=== PATIENT | female | born 1970 | race Caucasian/White ===

== ENCOUNTER 2017-09-01 18:14 | Emergency (ER) | payer MEDICAID ==
[~2017-09-01] VITALS: Ht 167.6 cm; Wt 76.2 kg
[2017-09-01 18:26] VITALS: Ht 167.6 cm; Wt 76.2 kg
[2017-09-01 20:25] LABS: BASOPHIL % 0.5 % (0-2); PLATELET COUNT 236 x10^3mcL (130-400); RED CELL DISTRIBUTION WIDTH 13.8 % (11.5-14.5)
[2017-09-01 20:30] LABS: CALCIUM 9.2 mg/dL (8.5-10.1); CARBON DIOXIDE 31.6 mmol/L (21-32); CHLORIDE SERUM 101 mmol/L (98-107); CREATININE SERUM 0.6 mg/dL (0.6-1.0); GFR1 > 60 mL/min; GLUCOSE SERUM 95 mg/dL (74-106); POTASSIUM SERUM 4.3 mmol/L (3.5-5.1); SODIUM SERUM 140 mmol/L (136-145)
[2017-09-01 20:36] LABS: ALBUMIN 4.2 g/dL (3.4-5.0); ALKALINE PHOSPHATASE 96 U/L (46-116); ALT/SGPT 47 U/L (14-59); AST/SGOT 22 U/L (15-37); BILIRUBIN TOTAL 0.2 mg/dL (0.20-1.00)
[2017-09-01 20:42] LABS: TOTAL PROTEIN, SERUM 8.3 g/dL (6.4-8.2)
[2017-09-01 21:29] VITALS: BP 128/80
== END 2017-09-01 21:30 | disposition home or self-care (01) ==
LOC: ED 18:14
PROVIDERS: Emergency Medicine
DX: G44.209 Tension-type headache, unspecified, not intractable (principal); M79.1 Myalgia; Z86.73 Personal history of transient ischemic attack (TIA), and cerebral infarction without residual deficits

== ENCOUNTER 2017-12-30 21:34 | Emergency (ER) | payer MEDICAID ==
[~2017-12-30] VITALS: Ht 170.2 cm; Wt 76.7 kg
[2017-12-30 21:43] VITALS: Ht 170.2 cm; Wt 76.7 kg
[2017-12-31 00:15] VITALS: BP 117/75
== END 2017-12-31 00:15 | disposition home or self-care (01) ==
LOC: ED 21:34
DX: G44.209 Tension-type headache, unspecified, not intractable (principal); R03.0 Elevated blood-pressure reading, without diagnosis of hypertension
CPT/HCPCS: J1885; Q0162

== ENCOUNTER 2019-03-29 20:08 | Emergency (ER) | payer MEDICAID ==
[~2019-03-29] VITALS: Ht 170.2 cm; Wt 78.5 kg
[2019-03-29 20:13] VITALS: Ht 170.2 cm; Wt 78.5 kg
[2019-03-29 21:51] VITALS: BP 135/76
== END 2019-03-29 21:51 | disposition home or self-care (01) ==
LOC: ED 20:08
DX: B34.9 Viral infection, unspecified (principal); G44.209 Tension-type headache, unspecified, not intractable
CPT/HCPCS: J1885